=== PATIENT | male | born 1990 | race Caucasian/White ===

== ENCOUNTER → 2017-04-17 | Day surgery (SDC) | payer OTHER ==
[~2017-04-17] MED LIST: NO MEDICATIONS
--- NOTE | ~2017-04-17 | OR ---
Unit #: [id number] #: [id number] Patient: LEONILA CONKLIN [id number] [address] [place], [place] [address] [id number] O MR#: [id number] NAME: LEONILA CONKLIN ROOM: Date of Procedure: 04/17/2017 Admission Date: 04/17/2017 Surgeon: Randy Manzo Jr., M.D. : 1990 Attending Physician: Randy Manzo Jr., M.D. Primary Care Physician: Chadd Carlos M.D. OPERATIVE REPORT JOB NOTE: CC: DR. CHADD CARLOS. INDICATIONS FOR PROCEDURE The patient is a 27-year-old white male, who has been having intermittent mid epigastric and right upper quadrant abdominal pain, was worked up and noted to have evidence of cholecystitis with cholelithiasis. It is felt he is having biliary colic. He is brought in at this time for elective laparoscopic cholecystectomy. Preoperative liver function tests are normal. PREOPERATIVE DIAGNOSES Chronic cholecystitis and cholelithiasis. POSTOPERATIVE DIAGNOSES Chronic cholecystitis and cholelithiasis. Noting some adhesions to the omentum of the gallbladder. ANESTHESIA General with endotracheal intubation. PROCEDURE PERFORMED Laparoscopic cholecystectomy. DESCRIPTION OF PROCEDURE The patient was positioned in supine position. After being anesthetized and intubated, he was prepped and draped in routine fashion for laparoscopic cholecystectomy. A small supraumbilical incision was made approximately a centimeter in length. This was carried down to the fascia. The fascia in the umbilicus was lifted with a towel clip, and a Veress needle introduced into the abdomen. The abdomen was then inflated with CO2 gas. A 5-mm port was introduced into the abdomen followed by the camera. There was no evidence of any injury related to introduction of the port or the Veress needle. Brief intra-abdominal exploration was carried out. The patient was noted to have evidence of a chronic inflamed gallbladder with some adhesions of the omentum to it. Two 5-mm ports were placed laterally and an 11-mm port just to the right of the upper midline. The gallbladder was lifted. Multiple adhesions were pulled free by both sharp and blunt dissection. After the gallbladder was completely mobilized down towards the area of the triangle of Calot, cystic duct was isolated, only 1 to 2 mm in diameter, was hemoclipped x4 and divided a centimeter from its junction with the common duct. Cystic artery was identified and hemoclipped x3 and divided. The gallbladder was then Unit #: [id number] #: [id number] Patient: LEONILA CONKLIN removed from its bed with the hook cautery using a current of 20, and after it was released, it was removed along with the grasping clamp and the port. The port was placed. Subhepatic space checked. There was no evidence of any bleeding from the gallbladder bed. The clips on the cystic duct and cystic artery were intact with no evidence of any leak or bleeding. A small amount of bile was then removed with a sponge, packed directly into the abdomen and brought directly back out. After hemostasis was again noted and the clips were intact, the fascia in the larger port site was approximated using neoClose technique. CO2 was expressed from the abdomen. The ports were removed. There was no evidence of any bleeding from the port sites. The port sites were injected with 0.5% Marcaine with epinephrine locally. The wounds were irrigated, and after hemostasis was achieved with the Bovie cautery, skin edges were approximated with stainless-steel skin clips and skin stapling device. Sterile dressings were applied externally. Estimated blood loss less than 50 mL. The patient received less than 1000 mL of crystalloid solution during the procedure. Sponges and instruments counts were correct x3. No drains were used. No complications. The patient was taken to the recovery room with stable vital signs and in satisfactory condition. Dictated by... Randy Manzo Jr., Kevin. HALLIE/astrid TD: 04/26/2017 16:21 JOB #: [id number] OPERATIVE REPORT Page 1 of 1 X Randy Manzo MD X PROCEDURE OPERATIVE NOTE
[2017-04-17 09:00] LABS: ALBUMIN SERUM 4.5 g/dL (3.5-5.0); BILIRUBIN,TOTAL 1.1 mg/dL (0.2-2.0); BUN/CREATININE RATIO 27.5; CALCIUM SERUM 9.1 mg/dL (8.4-10.2); CREATININE SERUM 0.8 mg/dL (0.6-1.4); GLOM FILT RATE Estimated 122.5 mL/min (>60); POTASSIUM 3.7 mmol/L (3.5-5.1); PROTEIN TOTAL SERUM 7.4 g/dL (6.0-8.3)
== END | disposition home or self-care (01) ==
LOC: CSUR 07:51
PROVIDERS: Surgery
DX: K80.10 Calculus of gallbladder with chronic cholecystitis without obstruction (principal); E66.9 Obesity, unspecified; Z68.29 Body mass index [BMI] 29.0-29.9, adult
CPT/HCPCS: 80053; 88304; J0330; J0690; J1100; J1170; J1885; J2250; J2370; J2405; J2710; J3010